=== PATIENT | female | born 1980 | race Caucasian/White ===

== ENCOUNTER 2017-12-14 21:15 | Emergency (ER) | payer OTHER ==
[2017-12-14 21:24] VITALS: TEMP 100.1
[2017-12-14] MEDS ORDERED: SODIUM CHLORIDE 0.9% 1,000 ML IV STA (21:48)
[2017-12-14 22:03] LABS: Basophils % (A) 0 %; Eosinophils # (A) 0.1 k/uL (0-0.7); Eosinophils % (A) 1 %; HCT 31.7 % (34.0-46.0); HGB 10.3 gm/dL (11.4-16.0); Lymphocytes # (A) 1.7 k/uL (1.0-4.8); Lymphocytes % (A) 18 %; MCH 31.8 pg (25.0-35.0); MCHC 32.6 g/dL (31.0-37.0); MCV 97.7 fL (80.0-100.0); Monocytes # (A) 0.8 k/uL (0-1.0); Monocytes % (A) 8 %; Neutrophils # (A) 6.6 k/uL (1.3-7.7); Neutrophils % (A) 71 %; Platelet Count 243 k/uL (150-450); RBC 3.24 m/uL (3.80-5.40); RDW 14.3 % (11.5-15.5); WBC 9.2 k/uL (3.8-10.6)
[2017-12-14 22:13] LABS: ALT 64 U/L (9-52); AST 68 U/L (14-36); Albumin 3.4 g/dL (3.5-5.0); Alkaline Phosphatase 65 U/L (38-126); Anion Gap 9 mmol/L; Blood Urea Nitrogen 7 mg/dL (7-17); Calcium 9.2 mg/dL (8.4-10.2); Carbon Dioxide 21 mmol/L (22-30); Chloride 105 mmol/L (98-107); Glucose 94 mg/dL (74-99); Potassium 4.1 mmol/L (3.5-5.1); Sodium 135 mmol/L (137-145); Total Bilirubin 0.2 mg/dL (0.2-1.3)
--- NOTE | 2017-12-14 22:23 | ED ---
Seizure HPI <Cricket Morocho - Last Filed: 12/15/17 01:37> - General Source: patient, RN notes reviewed Mode of arrival: EMS Limitations: no limitations <Veronica Dennis - Last Filed: 12/15/17 01:57> - General Chief Complaint: Seizure Stated Complaint: seizure Time Seen by Provider: 12/14/17 21:29 - History of Present Illness Initial Comments: This is a 37-year-old female who presents to the emergency department with chief complaint of seizure. Patient states that on December 08 she moved into [facility]. She has been withdrawing from alcohol, and has a history of marijuana and tobacco use. She was placed on withdrawal protocol and had her last dose of Ativan at 2:30 AM on December 13. Ativan was supposed to be discontinued at that time. This evening at approximately 8:30/9:00 patient states that she felt a "tic" after bending down and then standing back up. She states that they administered Ativan and then patient became nauseous and had a vomiting episode. She then had a seizure and staff helped her lay on the floor. She denies any injuries or trauma. Denies head trauma. She does state that she bit the tip of her tongue. Patient states that she is 25 weeks but has not had any care since July. Patient does have a mild fever, however she states that she has been feeling well otherwise and at that no residents at the home have influenza. Patient denies chest pain or shortness of breath, abdominal pain, nausea or vomiting, diarrhea or constipation, numbness or tingling, headache or dizziness. Patient states that she currently feels fatigued in scared. (Veronica Dennis) - Related Data Home Medications Medication Instructions Recorded Confirmed Acetaminophen [Tylenol] 650 mg PO Q4H PRN 12/14/17 12/14/17 Calcium Carbonate [Tums] 1,000 mg PO Q4H PRN 12/14/17 12/14/17 Docusate [Colace] 100 mg PO QID PRN 12/14/17 12/14/17 LORazepam [Ativan] 1 mg PO ONCE PRN 12/14/17 12/14/17 Ondansetron HCl [Zofran] 8 mg PO Q6H PRN 12/14/17 12/14/17 Ondansetron [Zofran] 4 mg IM Q6H PRN 12/14/17 12/14/17 Ipe-Usjg-Pejjx Acid 1 cap PO DAILY 12/14/17 12/14/17 [-U Capsule (formulary)] Allergies Allergy/AdvReac Type Severity Reaction Status Date / Time No Known Allergies Allergy Unverified 12/14/17 21:20 Review of Systems ROS Other: All systems not noted in ROS Statement are negative. <Cricket Morocho - Last Filed: 12/15/17 01:37> ROS Other: All systems not noted in ROS Statement are negative. <Veronica Dennis Kristine - Last Filed: 12/15/17 01:57> ROS Statement: Those systems with pertinent positive or pertinent negative responses have been documented in the HPI. Past Medical History Past Medical History: Seizure Disorder History of Any Multi-Drug Resistant Organisms: None Reported Past Surgical History: Orthopedic Surgery Additional Past Surgical History / Comment(s): lt ankle Past Psychological History: Anxiety, Depression Smoking Status: Current every day smoker Past Alcohol Use History: Abuse, Daily Past Drug Use History: Marijuana <Veronica Dennis - Last Filed: 12/15/17 01:57> General Exam <MorochoCricket - Last Filed: 12/15/17 01:37> Limitations: no limitations <Veronica Dennis Kristine - Last Filed: 12/15/17 01:57> - General Exam Comments Initial Comments: General: Awake and alert, well-developed; in no apparent distress. Appears anxious. HEENT: Head atraumatic, normocephalic. Pupils are equal, round and reactive to light. Extraocular movements intact. Oropharynx moist without erythema or exudate. Neck: Supple. Normal ROM. Cardiovascular: Regular rate and rhythm. No murmurs, rubs or gallops. Chest symmetrical. Respiratory: Lungs clear to auscultation bilaterally. No wheezes, rales or rhonchi. Normal respiratory effort with no use of accessory muscles. Abdomen: Soft, non-tender, non-distended. No rigidity, rebound or guarding. Normal bowel sounds in all 4 quadrants. Musculoskeletal: Normal ROM, no tenderness, strength 5/5 bilateral upper and lower extremities. Pulses are 2+ equal and palpable bilaterally. Skin: [place], warm and dry without rashes or lesions. Neurological: Alert and oriented x3. CN II-XII grossly intact. Speech is fluent and answers are appropriate. No focal neuro deficits. (Veronica Dennis) Course <Cricket Morocho - Last Filed: 12/15/17 01:37> <Veronica Dennis - Last Filed: 12/15/17 01:57> Vital Signs 12/14/17 12/14/17 12/14/17 21:17 22:20 23:36 Temperature 100.1 F H Pulse Rate 104 H 89 97 Respiratory 20 20 18 Rate Blood Pressure 115/50 126/56 123/65 O2 Sat by Pulse 96 99 100 Oximetry 12/15/17 00:24 Temperature Pulse Rate 88 Respiratory 18 Rate Blood Pressure 109/63 O2 Sat by Pulse 97 Oximetry - Reevaluation(s) Reevaluation #1: 12/15/17 01:37 Patient was reevaluated by myself, Dr. Morocho. Patient states she does have a history of alcohol withdrawal seizures 6 or 7 times previously. No pelvic pain or vaginal bleeding. Patient is near symptom-free at this time. Patient updated on results. Case was discussed with on-call MAKE UP WORKER Dr. Randall who did not feel further evaluation was needed. (Cricket Morocho) Medical Decision Making - Lab Data Result diagrams: 12/14/17 21:30 12/14/17 21:30 <Cricket Morocho - Last Filed: 12/15/17 01:37> - Lab Data Result diagrams: 12/14/17 21:30 12/14/17 21:30 <Veronica Dennis - Last Filed: 12/15/17 01:57> - Medical Decision Making This is a 37-year-old female presents to the emergency department for evaluation of seizure. Patient is a resident at [facility] and has been on withdrawal protocol from alcohol. Patient is 25 weeks and has had no care since July. This evening she was transported to the emergency department via EMS after having a seizure. heart tones in the emergency department range in the 150s and 160s. Hemoglobin is 10.3. Patient did have a slightly elevated AST and ALT. This is likely due to her alcoholism. Patient's vital signs were stable throughout entire emergency department stay and has had no seizure activity.Blood pressure is normal. No concern for preeclampsia or eclampsia. UA revealed trace protein and trace ketones and no drugs were found in the urine. Patient is in no acute distress and will be discharged back to [facility]. Patient was made aware of findings and plan. She is in agreement and voices understanding. Attending physician, Dr. Morocho was in contact with Dr. Randall the on-call OB/ CHIEF SCIENTIST doctor. Recommended discharge home with follow-up outpatient. (Veronica Dennis) - Lab Data Lab Results 12/14/17 12/14/17 12/14/17 Range/Units 21:30 21:30 22:13 WBC 9.2 (3.8-10.6) k/uL RBC 3.24 L (3.80-5.40) m/uL Hgb 10.3 L (11.4-16.0) gm/dL Hct 31.7 L (34.0-46.0) % MCV 97.7 (80.0-100.0) fL MCH 31.8 (25.0-35.0) pg MCHC 32.6 (31.0-37.0) g/dL RDW 14.3 (11.5-15.5) % Plt Count 243 (150-450) k/uL Neutrophils % 71 % Lymphocytes % 18 % Monocytes % 8 % Eosinophils % 1 % Basophils % 0 % Neutrophils # 6.6 (1.3-7.7) k/uL Lymphocytes # 1.7 (1.0-4.8) k/uL Monocytes # 0.8 (0-1.0) k/uL Eosinophils # 0.1 (0-0.7) k/uL Basophils # 0.0 (0-0.2) k/uL Sodium 135 L (137-145) mmol/L Potassium 4.1 (3.5-5.1) mmol/L Chloride 105 (98-107) mmol/L Carbon Dioxide 21 L (22-30) mmol/L Anion Gap 9 mmol/L BUN 7 (7-17) mg/dL Creatinine 0.44 L (0.52-1.04) mg/dL Est GFR (MDRD) Af Amer >60 (>60 ml/min/1.73 sqM) Est GFR (MDRD) Non-Af >60 (>60 ml/min/1.73 sqM) Glucose 94 (74-99) mg/dL POC Glucose (mg/dL) 118 H (75-99) mg/dL POC Glu Welder Setter Resistance Machine ID Jade Reyes Calcium 9.2 (8.4-10.2) mg/dL Magnesium 2.0 (1.6-2.3) mg/dL Total Bilirubin 0.2 (0.2-1.3) mg/dL AST 68 H (14-36) U/L ALT 64 H (9-52) U/L Alkaline Phosphatase 65 (38-126) U/L Total Protein 6.0 L (6.3-8.2) g/dL Albumin 3.4 L (3.5-5.0) g/dL Urine Color Urine Appearance (Clear) Urine pH (5.0-8.0) Ur Specific [place] (1.001-1.035) Urine Protein (Negative) Urine Glucose (UA) (Negative) Urine Ketones (Negative) Urine Blood (Negative) Urine Nitrite (Negative) Urine Bilirubin (Negative) Urine Urobilinogen (<2.0) mg/dL Ur Leukocyte Esterase (Negative) Urine Opiates Screen (NotDetected) Ur Oxycodone Screen (NotDetected) Urine Methadone Screen (NotDetected) Ur Propoxyphene Screen (NotDetected) Ur Barbiturates Screen (NotDetected) U Tricyclic Antidepress (NotDetected) Ur Phencyclidine Scrn (NotDetected) Ur Amphetamines Screen (NotDetected) U Methamphetamines Scrn (NotDetected) U Benzodiazepines Scrn (NotDetected) Urine Cocaine Screen (NotDetected) U Marijuana (THC) Screen (NotDetected) 12/14/17 Range/Units 23:15 WBC (3.8-10.6) k/uL RBC (3.80-5.40) m/uL Hgb (11.4-16.0) gm/dL Hct (34.0-46.0) % MCV (80.0-100.0) fL MCH (25.0-35.0) pg MCHC (31.0-37.0) g/dL RDW (11.5-15.5) % Plt Count (150-450) k/uL Neutrophils % % Lymphocytes % % Monocytes % % Eosinophils % % Basophils % % Neutrophils # (1.3-7.7) k/uL Lymphocytes # (1.0-4.8) k/uL Monocytes # (0-1.0) k/uL Eosinophils # (0-0.7) k/uL Basophils # (0-0.2) k/uL Sodium (137-145) mmol/L Potassium (3.5-5.1) mmol/L Chloride (98-107) mmol/L Carbon Dioxide (22-30) mmol/L Anion Gap mmol/L BUN (7-17) mg/dL Creatinine (0.52-1.04) mg/dL Est GFR (MDRD) Af Amer (>60 ml/min/1.73 sqM) Est GFR (MDRD) Non-Af (>60 ml/min/1.73 sqM) Glucose (74-99) mg/dL POC Glucose (mg/dL) (75-99) mg/dL POC Glu Welder Setter Resistance Machine ID Calcium (8.4-10.2) mg/dL Magnesium (1.6-2.3) mg/dL Total Bilirubin (0.2-1.3) mg/dL AST (14-36) U/L ALT (9-52) U/L Alkaline Phosphatase (38-126) U/L Total Protein (6.3-8.2) g/dL Albumin (3.5-5.0) g/dL Urine Color Light Yellow Urine Appearance Clear (Clear) Urine pH 6.0 (5.0-8.0) Ur Specific [place] 1.008 (1.001-1.035) Urine Protein Trace H (Negative) Urine Glucose (UA) Negative (Negative) Urine Ketones Trace H (Negative) Urine Blood Negative (Negative) Urine Nitrite Negative (Negative) Urine Bilirubin Negative (Negative) Urine Urobilinogen <2.0 (<2.0) mg/dL Ur Leukocyte Esterase Negative (Negative) Urine Opiates Screen Not Detected (NotDetected) Ur Oxycodone Screen Not Detected (NotDetected) Urine Methadone Screen Not Detected (NotDetected) Ur Propoxyphene Screen Not Detected (NotDetected) Ur Barbiturates Screen Not Detected (NotDetected) U Tricyclic Antidepress Not Detected (NotDetected) Ur Phencyclidine Scrn Not Detected (NotDetected) Ur Amphetamines Screen Not Detected (NotDetected) U Methamphetamines Scrn Not Detected (NotDetected) U Benzodiazepines Scrn Not Detected (NotDetected) Urine Cocaine Screen Not Detected (NotDetected) U Marijuana (THC) Screen Not Detected (NotDetected) - EKG Data EKG Comments: EKG at 22:08:25. Normal sinus rhythm. Ventricular rate 87 bpm, OK interval 152 , QRS duration 84, QT/QTC 368/442. (Veronica Dennis) Disposition <Cricket Morocho - Last Filed: 12/15/17 01:37> Time of Disposition: 01:56 <Veronica Dennis - Last Filed: 12/15/17 01:57> Clinical Impression: Withdrawal seizures Disposition: HOME SELF-CARE Condition: Good Instructions: Alcohol Withdrawal (ED), Recurrent Seizures in Adults (ED) Additional Instructions: Please follow-up with the doctor at [facility] tomorrow regarding your visit in the emergency department. Please inquire about continuation of Ativan and withdrawal protocol. Please follow up with primary care provider within 1-2 days. Return to emergency department if symptoms should worsen or any concerns arise. Referrals: None,Stated [Primary Care Provider] - 1-2 days Brian Randall MD [STAFF PHYSICIAN] - 1-2 days
[2017-12-14 22:52] LABS: Glucose,Whole Blood 118 mg/dL (75-99)
[2017-12-14] MEDS ORDERED: LORazepam 2 MG/ML INJ IV STA (23:16)
[2017-12-14 23:36] LABS: Appearance,Urine Clear (Clear); Bilirubin,Urine Negative (Negative); Blood,Urine Negative (Negative); Color,Urine Light Yellow; Glucose,Urine (UA) Negative (Negative); Ketones,Urine Trace (Negative); Leukocyte Esterase,Urine Negative (Negative); Nitrite,Urine Negative (Negative); Protein,Urine Trace (Negative); Specific Gravity,Urine 1.008 (1.001-1.035); Urobilinogen,Urine <2.0 mg/dL (<2.0)
[2017-12-14 23:39] VITALS: RESP 18
[2017-12-14 23:46] LABS: Amphetamine Screen,Urine Not Detected (NotDetected); Barbiturate Screen,Urine Not Detected (NotDetected); Benzodiazepines Screen,Urine Not Detected (NotDetected); Cocaine Screen,Urine Not Detected (NotDetected); Methadone Screen, Urine Not Detected (NotDetected); Opiate Screen,Urine Not Detected (NotDetected); Oxycodone Screen, Urine Not Detected (NotDetected); Phencyclidine Screen,Urine Not Detected (NotDetected); Tricyclic Antidepressant,Urine Not Detected (NotDetected); Urn Cannabinoid Scrn Not Detected (NotDetected)
[2017-12-15] MEDS ORDERED: ACETAMINOPHEN TAB 500 MG TAB PO STA (01:06)
[2017-12-15 02:52] VITALS: BP 96/56; PULSE 76
== END 2017-12-15 03:04 | disposition home or self-care (01) ==
LOC: EC 21:15
DX: O99.352 Diseases of the nervous system complicating pregnancy, second trimester (principal); G40.509 Epileptic seizures related to external causes, not intractable, without status epilepticus; G40.909 Epilepsy, unspecified, not intractable, without status epilepticus; O99.332 Smoking (tobacco) complicating pregnancy, second trimester; F17.200 Nicotine dependence, unspecified, uncomplicated; Z3A.25 25 weeks gestation of pregnancy
CPT/HCPCS: 36415; 93005; 80053; 83735; 85025; 81003; 80306; 99284; 96374; 96361; J2060

== ENCOUNTER 2023-11-09 14:14 | Emergency (ER) | payer OTHER ==
--- NOTE | 2023-11-09 15:18 | ED ---
Chest Pain HPI - General Chief Complaint: Chest Pain Stated Complaint: ETOH, Chest Pain Time Seen by Provider: 11/09/23 14:15 Source: patient, EMS, RN notes reviewed Mode of arrival: EMS Limitations: no limitations - History of Present Illness Initial Comments: 43-year-old female presents emergency Department from [facility] with chief complaint of alcohol intoxication, chest pain. Patient reportedly checking into alcohol rehab by complain of some chest pain. She states been intermittent for a while states she has no prior cardiac disease she does have a history of hyperglycemia, diabetes. Patient denies any fevers chills no cough or leg symptoms she states she drinks large amount of alcohol daily. No abdominal complaints. - Related Data Home Medications Medication Instructions Recorded Confirmed Acetaminophen [Tylenol] 650 mg PO Q4H PRN 12/14/17 12/14/17 Calcium Carbonate [Tums] 1,000 mg PO Q4H PRN 12/14/17 12/14/17 Docusate [Colace] 100 mg PO QID PRN 12/14/17 12/14/17 LORazepam [Ativan] 1 mg PO ONCE PRN 12/14/17 12/14/17 Ondansetron [Zofran] 4 mg IM Q6H PRN 12/14/17 12/14/17 Qrt-[id number] Acid 1 cap PO DAILY 12/14/17 12/14/17 [-U Capsule (formulary)] ondansetron HCL [Zofran] 8 mg PO Q6H PRN 12/14/17 12/14/17 Allergies Allergy/AdvReac Type Severity Reaction Status Date / Time No Known Allergies Allergy Verified 11/09/23 14:30 Review of Systems ROS Statement: Those systems with pertinent positive or pertinent negative responses have been documented in the HPI. ROS Other: All systems not noted in ROS Statement are negative. EKG Findings - EKG Results: EKG: interpreted by SAQIB WNL, sinus rhythm, normal axis, normal QRS, no acute changes Past Medical History Past Medical History: Diabetes Mellitus, Seizure Disorder History of Any Multi-Drug Resistant Organisms: None Reported Past Surgical History: Orthopedic Surgery Additional Past Surgical History / Comment(s): lt ankle Past Psychological History: Anxiety, Depression Smoking Status: Never smoker Past Alcohol Use History: Abuse, Daily Past Drug Use History: Marijuana General Exam Limitations: no limitations General appearance: alert, in no apparent distress, appears intoxicated Head exam: Present: atraumatic, normocephalic, normal inspection Eye exam: Present: normal appearance, PERRL, EOMI. Absent: scleral icterus, conjunctival injection, periorbital swelling ENT exam: Present: normal exam, mucous membranes moist Neck exam: Present: normal inspection, full ROM. Absent: tenderness, meningismus, lymphadenopathy Respiratory exam: Present: normal lung sounds bilaterally. Absent: respiratory distress, wheezes, rales, rhonchi, stridor Cardiovascular Exam: Present: regular rate, normal rhythm, normal heart sounds. Absent: systolic murmur, diastolic murmur, rubs, gallop, clicks GI/Abdominal exam: Present: soft, normal bowel sounds. Absent: distended, tend erness, guarding, rebound, rigid Course Vital Signs 11/09/23 11/09/23 11/09/23 14:17 15:00 16:30 Temperature 97.6 F 98.2 F Pulse Rate 89 76 Pulse Rate [ 84 Plasterer Tender ] Respiratory 20 20 Rate Blood Pressure 98/66 119/58 O2 Sat by Pulse 95 98 Oximetry 11/09/23 19:00 Temperature 98.0 F Pulse Rate 87 Pulse Rate [ Plasterer Tender ] Respiratory 17 Rate Blood Pressure 100/58 O2 Sat by Pulse 98 Oximetry Chest Pain MDM - MDM Was pt. sent in by a medical professional or institution (, [facility], SYSTEM ARCHITECT, urgent care, hospital, or assisted...) When possible be specific @ -[facility] Did you speak to anyone other than the patient for history (EMS, parent, family, police, friend...)? What history was obtained from this source @ -No Did you review nursing and triage notes (agree or disagree)? Why? @ -I reviewed and agree with nursing and triage notes Were old charts reviewed (outside hosp., previous admission, EMS record, old EKG, old radiological studies, urgent care reports/EKG's, assisted records)? Report findings @ -No old charts were reviewed Differential Diagnosis (chest pain, altered mental status, abdominal pain women, abdominal pain men, vaginal bleeding, weakness, fever, dyspnea, syncope, headache, dizziness, GI bleed, back pain, seizure, CVA, palpatations, mental health, musculoskeletal)? @ -[Alcohol intoxication,Differential Chest Pain: Stable Angina, Unstable Angina, STEMI, NSTEMI Aortic Dissection, Pneumothorax, Musculoskeletal, Esophageal Spasm GERD, Cholecystitis, Pancreatitis, Zoster, this is not meant to be an all-inclusive list. EKG interpreted by me (3pts min.). @ -As above X-rays interpreted by me (1pt min.). @ -Chest x-ray shows no acute process CT interpreted by me (1pt min.). @ -None done U/S interpreted by me (1pt. min.). @ -None done What testing was considered but not performed or refused? (CT, X-rays, U/S, labs)? Why? @ -None What meds were considered but not given or refused? Why? @ -None Did you discuss the management of the patient with other professionals (professionals i.e. , PA, SYSTEM ARCHITECT, lab, RT, psych nurse, clinical social worker, screen repairer crusher, teacher, county health officer, binder caser)? Give summary @ -No Was smoking cessation discussed for >3mins.? @ -No Was critical care preformed (if so, how long)? @ -No Were there social determinants of health that impacted care today? How? (Homelessness, low income, unemployed, alcoholism, drug addiction, transportation, low edu. Level, literacy, decrease access to med. care, longterm, rehab)? @ -No Was there de-escalation of care discussed even if they declined (Discuss DNR or withdrawal of care, Hospice)? DNR status @ -No What co-morbidities impacted this encounter? (DM, HTN, Smoking, COPD, CAD, Cancer, CVA, ARF, Chemo, Hep., AIDS, mental health diagnosis, sleep apnea, morbid obesity)? @ -Alcohol abuse Was patient admitted / discharged? Hospital course, mention meds given and route, prescriptions, significant lab abnormalities, going to OR and other pertinent info. @ -Discharge back to [facility]. Patient atypical chest pain and chest pain has been going on azithromycin time initial troponin is negative, runny workup is negative other than mild metabolic acidosis related to alcohol abuse, patient was given 2 L of fluid and will be discharged back to [facility] Undiagnosed new problem with uncertain prognosis? @ -No Drug Therapy requiring intensive monitoring for toxicity (Heparin, Nitro, Insulin, Cardizem)? @ -No Were any procedures done? @ -No Diagnosis/symptom? @ -[Alcohol intoxication, alcohol abuse, atypical chest pain Acute, or Chronic, or Acute on Chronic? @ -[Acute Uncomplicated or, complicated @ , Complicated Side effects of treatment? @ -No Exacerbation, Progression, or Severe Exacerbation? @ -No Poses a threat to life or bodily function? How? (Chest pain, [place], [place], pneumonia, PE, COPD, DKA, ARF, appy, cholecystitis, CVA, Diverticulitis, Homicidal, Suicidal, threat to staff... and all critical care pts) @ -No Disposition Clinical Impression: Atypical chest pain, Alcohol intoxication, Alcohol abuse Disposition: HOME SELF-CARE Instructions (If sedation given, give patient instructions): Chest Pain (ED), Alcohol Intoxication (ED) Is patient prescribed a controlled substance at d/c from ED?: No Referrals: None,Stated [Primary Care Provider] - 1-2 days Time of Disposition: 16:35
[2023-11-09 16:00] LABS: Basophils # (A) 0.1 k/uL (0-0.2); Basophils % (A) 1 %; Eosinophils % (A) 0 %; HGB 14.2 gm/dL (11.4-16.0); Lymphocytes # (A) 2.8 k/uL (1.0-4.8); Lymphocytes % (A) 32 %; MCHC 33.8 g/dL (31.0-37.0); MCV 88.9 fL (80.0-100.0); Mean Platelet Volume 7.6; Monocytes # (A) 0.6 k/uL (0-1.0); Monocytes % (A) 7 %; Neutrophils # (A) 5.1 k/uL (1.3-7.7); Neutrophils % (A) 57 %; Platelet Count 286 k/uL (150-450); RBC 4.72 m/uL (3.80-5.40); WBC 8.9 k/uL (3.8-10.6)
[2023-11-09 16:13] LABS: ALT 20 U/L (4-34); AST 23 U/L (14-36); African American GFR (CKD) >90 (>60 ml/min/1.73 sqM); Albumin 4.5 g/dL (3.5-5.0); Alkaline Phosphatase 71 U/L (38-126); Anion Gap 17 mmol/L; Blood Urea Nitrogen 12 mg/dL (7-17); Calcium 9.1 mg/dL (8.4-10.2); Carbon Dioxide 14 mmol/L (22-30); Chloride 113 mmol/L (98-107); Glucose 95 mg/dL (74-99); Lipase 232 U/L (23-300); Magnesium 2.3 mg/dL (1.6-2.3); Non-African American GFR(CKD) >90 (>60 ml/min/1.73 sqM); Potassium 3.8 mmol/L (3.5-5.1); Sodium 144 mmol/L (137-145); Total Bilirubin 0.3 mg/dL (0.2-1.3); Total Protein 7.5 g/dL (6.3-8.2)
[2023-11-09 16:48] LABS: Alcohol 242 mg/dL
[2023-11-09] MEDS ORDERED: SODIUM CHLORIDE 0.9% 2,000 ML IV ONE (16:49)
--- NOTE | 2023-11-09 17:00 | XR ---
EXAMINATION TYPE: XR chest 2V DATE OF EXAM: 11/09/2023 4:02 PM CLINICAL INDICATION:Female, 43 years old with history of Chest Pain; COMPARISON: None TECHNIQUE: XR chest 2V Frontal and lateral views of the chest. FINDINGS: Lungs/Pleura: There is no evidence of pleural effusion, focal consolidation, or pneumothorax. Pulmonary vascularity: Unremarkable. Heart/mediastinum: Cardiomediastinal silhouette is unremarkable. Musculoskeletal: No acute osseous pathology. Other findings: None IMPRESSION: No acute cardiopulmonary disease/process.
[2023-11-09] MEDS ORDERED: LORazepam 1 MG TAB PO STA (19:17)
[2023-11-10 00:42] VITALS: BP 100/58; RESP 17; TEMP 98
[2023-11-10 01:11] VITALS: PULSE 84
== END 2023-11-09 19:16 | disposition home or self-care (01) ==
LOC: EC 14:14
DX: R07.89 Other chest pain (principal); F10.129 Alcohol abuse with intoxication, unspecified; F10.10 Alcohol abuse, uncomplicated; E11.9 Type 2 diabetes mellitus without complications; F41.9 Anxiety disorder, unspecified; F32.A Depression, unspecified; F12.90 Cannabis use, unspecified, uncomplicated; Z79.899 Other long term (current) drug therapy; Y90.8 Blood alcohol level of 240 mg/100 ml or more
CPT/HCPCS: 36415; 80053; 83690; 83735; 84484; 85025; 71046; 99285; 96360; 96361; G0480; 80320